=== PATIENT | female | born 2000 | race African-American/Black ===

== ENCOUNTER 2024-06-14 10:47 | Emergency (ER) | payer MEDICAID ==
[~2024-06-14] VITALS: Ht 170.2 cm; Wt 72.7 kg
[2024-06-14 10:55] VITALS: BP 96/54; PULSE 76; RESP 18; TEMP 98.4; O2SAT 100
[2024-06-14 11:10] LABS: COVID AG,FIA SOURCE NASAL SWAB
[2024-06-14 11:39] LABS: SARS-COV2 (COVID) ANTIGEN,FIA Negative (Negative)
[2024-06-14 11:40] LABS: INFLUENZA TYPE A NEGATIVE FOR TYPE A (NEGATIVE); INFLUENZA TYPE B NEGATIVE FOR TYPE B (NEGATIVE)
== END 2024-06-14 12:23 | disposition home or self-care (01) ==
LOC: EMS 10:54
DX: B34.9 Viral infection, unspecified (principal); Z20.822 Contact with and (suspected) exposure to COVID-19
CPT/HCPCS: 87804; 99283